=== PATIENT | female | born 1985 | race American Indian/Alaskan Native ===

== ENCOUNTER 2018-10-11 08:06 | Emergency (ER) | payer OTHER ==
--- NOTE | 2018-10-11 10:09 | Emergency Department Report ---
ED Psych HPI - General Chief Complaint: Medical Clearance Stated Complaint: MED CLEARANCE Time Seen by Provider: 10/11/18 09:51 Source: patient Mode of arrival: Stretcher - History of Present Illness Initial Comments: Case 3-year-old female who is very poorly cooperative states she was sent here by [facility] for medical clearance. She denies suicidality. She presents with a transfer form stating withdrawal from cocaine and is otherwise illegible. There is some notation of "suicidal" on the forearms and dependency on THC and alcohol. The patient will not quantify how much alcohol she drinks. She does not offer the information about her homelessness. She has had an initial clinical assessment at [facility]. I do not know if she is eligible to continue hospitalization there. However there is a former stating voluntary status application to [facility] dated this date. The patient just lays on her side with a hat over her head. She denies any chronic medical problems or HIV. She has no specific complaints other than "the lights are too bright" MD Complaint: suicidal ideation (uncertain inflicting information patient states no) Associated Psychiatric Symptoms: other (requesting detox) History of same: Yes Context: recent alcohol abuse, recent drug abuse, not taking psychiatric (not offering a psychiatric history now but not unlikely) Associated Symptoms: denies other symptoms Treatments Prior to Arrival: none - Related Data Previous Rx's Medication Instructions Recorded Last Taken Type Azithromycin [Zithromax Z-BRANDIE] 250 mg PO DAILY #6 tablet 06/08/15 Unknown Rx Benzonatate [Tessalon Perles] 100 mg PO Q8HR #30 capsule 06/08/15 Unknown Rx guaiFENesin/CODEINE [Robitussin AC] 5 ml PO Q6HR PRN #150 ml 06/09/15 Unknown Rx Cyclobenzaprine [Flexeril] 10 mg PO TID PRN #15 tablet 08/19/15 Unknown Rx Naproxen [Naprosyn TAB] 500 mg PO BID #20 tablet 08/19/15 Unknown Rx traMADol [Ultram 50 MG tab] 50 mg PO Q8H PRN #10 tablet 08/19/15 Unknown Rx Allergies Allergy/AdvReac Type Severity Reaction Status Date / Time hydrocodone Allergy Hives Verified 04/08/14 15:52 ED Review of Systems ROS: Stated complaint: MED CLEARANCE Other details as noted in HPI Constitutional: denies: chills, fever Eyes: other (photosensitivity). denies: eye pain, vision change ENT: denies: ear pain, throat pain Respiratory: denies: cough, shortness of breath, wheezing Cardiovascular: denies: chest pain, palpitations Endocrine: no symptoms reported Gastrointestinal: denies: abdominal pain, nausea, diarrhea Genitourinary: denies: urgency, dysuria, discharge Musculoskeletal: denies: back pain, joint swelling, arthralgia Skin: denies: rash, lesions Neurological: denies: headache, weakness, paresthesias Psychiatric: as per HPI. denies: anxiety, depression Hematological/Lymphatic: denies: easy bleeding, easy bruising ED Past Medical Hx - Past Medical History Previous Medical History?: Yes Hx Congestive Heart Failure: No Hx Diabetes: No Hx Pulmonary Embolism: Yes (2012, after ) Hx GERD: Yes Hx Headaches / Migraines: Yes Hx Asthma: No Hx COPD: No Hx HIV: No Additional medical history: PE in the past, was treated with warfarin therapy. Negative CT angiogram in March of this year. Ovarian cyst - Surgical History Hx Cholecystectomy: Yes (2010) Hx Appendectomy: Yes (2010) Additional Surgical History: tubal ligation 02/2013 - Social History Smoking Status: Current Every Day Smoker Substance Use Type: Alcohol, Cocaine, Heroin, Marijuana - Medications Home Medications: Home Medications Medication Instructions Recorded Confirmed Last Taken Type Azithromycin [Zithromax Z-BRANDIE] 250 mg PO DAILY #6 tablet 06/08/15 Unknown Rx Benzonatate [Tessalon Perles] 100 mg PO Q8HR #30 capsule 06/08/15 Unknown Rx guaiFENesin/CODEINE [Robitussin AC] 5 ml PO Q6HR PRN #150 ml 06/09/15 Unknown Rx Cyclobenzaprine [Flexeril] 10 mg PO TID PRN #15 tablet 08/19/15 Unknown Rx Naproxen [Naprosyn TAB] 500 mg PO BID #20 tablet 08/19/15 Unknown Rx traMADol [Ultram 50 MG tab] 50 mg PO Q8H PRN #10 tablet 08/19/15 Unknown Rx ED Physical Exam - General Limitations: Other (uncooperative) General appearance: alert, in no apparent distress, cachectic (somewhat) - Head Head exam: Present: atraumatic, normocephalic - Eye Eye exam: Present: normal appearance. Absent: scleral icterus - ENT ENT exam: Present: mucous membranes moist - Neck Neck exam: Present: normal inspection. Absent: tenderness, meningismus - Respiratory Respiratory exam: Present: normal lung sounds bilaterally. Absent: respiratory distress - Cardiovascular Cardiovascular Exam: Present: regular rate, normal rhythm. Absent: systolic murmur, diastolic murmur, rubs, gallop - GI/Abdominal GI/Abdominal exam: Present: soft, normal bowel sounds. Absent: distended, tenderness, guarding, rebound - Extremities Exam Extremities exam: Present: normal inspection - Back Exam Back exam: Present: normal inspection - Neurological Exam Neurological exam: Present: alert, oriented X3, CN II-XII intact. Absent: motor sensory deficit - Psychiatric Psychiatric exam: Present: normal affect, normal mood - Skin Skin exam: Present: warm, dry, intact, normal color. Absent: rash ED Course Vital Signs 10/11/18 09:04 Temperature 98.2 F Pulse Rate 71 Respiratory 15 Rate Blood Pressure 104/71 Blood Pressure 104/71 [Left] O2 Sat by Pulse 99 Oximetry - Reevaluation(s) Reevaluation #1: Discussed with mental health counselor. She states that the patient may be discharged. She may return to [facility] for voluntary admission. She is medically clear at this time. 10/11/18 15:03 ED Medical Decision Making - Lab Data Result diagrams: 10/11/18 10:10 10/11/18 10:09 Laboratory Results - last 24 hr 10/11/18 10/11/18 10/11/18 10:09 10:09 10:09 WBC RBC Hgb Hct MCV MCH MCHC RDW Plt Count Lymph % (Auto) Gem % (Auto) Eos % (Auto) Baso % (Auto) Lymph # Gem # Eos # Baso # Seg Neutrophils % Seg Neutrophils # Sodium 141 Potassium 3.3 L Chloride 104.7 Carbon Dioxide 24 Anion Gap 16 BUN 11 Creatinine 0.8 Estimated GFR > 60 BUN/Creatinine Ratio 14 Glucose 107 H Calcium 9.0 Total Bilirubin < 0.20 Direct Bilirubin < 0.2 Indirect Bilirubin 0.0 AST 19 ALT 13 Alkaline Phosphatase 57 Total Creatine Kinase 165 H CK-MB (CK-2) 2.6 CK-MB (CK-2) Rel Index 1.5 Total Protein 6.3 Albumin 3.6 L Albumin/Globulin Ratio 1.3 Plasma/Serum Alcohol < 0.01 10/11/18 10:10 WBC 5.1 RBC 4.28 Hgb 12.1 Hct 37.1 MCV 87 MCH 28 MCHC 33 RDW 16.4 H Plt Count 373 Lymph % (Auto) 24.9 Gem % (Auto) 8.0 H Eos % (Auto) 1.7 Baso % (Auto) 0.7 Lymph # 1.3 Gem # 0.4 Eos # 0.1 Baso # 0.0 Seg Neutrophils % 64.7 Seg Neutrophils # 3.3 Sodium Potassium Chloride Carbon Dioxide Anion Gap BUN Creatinine Estimated GFR BUN/Creatinine Ratio Glucose Calcium Total Bilirubin Direct Bilirubin Indirect Bilirubin AST ALT Alkaline Phosphatase Total Creatine Kinase CK-MB (CK-2) CK-MB (CK-2) Rel Index Total Protein Albumin Albumin/Globulin Ratio Plasma/Serum Alcohol Critical care attestation.: If time is entered above; I have spent that time in minutes in the direct care of this critically ill patient, excluding procedure time. ED Disposition Clinical Impression: Medical clearance for psychiatric admission, Polysubstance abuse Disposition: DC-01 TO HOME OR SELFCARE Is pt being admited?: No Does the pt Need Aspirin: No Condition: Stable Instructions: Cocaine Abuse (ED) Additional Instructions: You may return to [facility] at this time. You are medically clear for psychiatric hospitalization. Referrals: ISAÍAS CHAPA MD [Primary Care Provider] - 3-5 Days Time of Disposition: 15:05
[2018-10-11 10:33] LABS: Basophils % (Auto) 0.7 % (0.0-1.8); Eosinophils # (Auto) 0.1 K/mm3 (0.0-0.4); Eosinophils % (Auto) 1.7 % (0.0-4.3); Hematocrit 37.1 % (30.3-42.9); Hemoglobin 12.1 gm/dl (10.1-14.3); Lymphocytes # (Auto) 1.3 K/mm3 (1.2-5.4); Lymphocytes % (Auto) 24.9 % (13.4-35.0); Mean Corpuscular HGB Conc 33 % (30-34); Mean Corpuscular Volume 87 fl (79-97); Monocytes # (Auto) 0.4 K/mm3 (0.0-0.8); Platelet Count 373 K/mm3 (140-440); Red Blood Count 4.28 M/mm3 (3.65-5.03); Red Cell Distribution Width 16.4 % (13.2-15.2)
[2018-10-11 10:49] LABS: BUN/Creatinine Ratio 14; Blood Urea Nitrogen 11 mg/dL (7-17); Hemolysis Index 11
[2018-10-11 10:50] LABS: Creatine Kinase MB 2.6 ng/mL (0.0-4.0)
[2018-10-11 10:53] LABS: Alanine Aminotransferase 13 units/L (7-56); Albumin 3.6 g/dL (3.9-5)
[2018-10-11 10:55] LABS: Bilirubin,Direct < 0.2 mg/dL (0-0.2)
[2018-10-11] MEDS ORDERED: K-DUR PO ONE (12:43)
[2018-10-11 16:08] LABS: Amphetamine Screen,Urine PRESUMPTIVE NEGATIVE; Benzodiazepines Screen,Urine PRESUMPTIVE NEGATIVE; Methadone Screen,Urine PRESUMPTIVE NEGATIVE; Opiate Screen,Urine PRESUMPTIVE NEGATIVE
[2018-10-11 16:20] LABS: Cannabinoid Screen,Urine PRESUMPTIVE POSITIVE; Cocaine Screen,Urine PRESUMPTIVE POSITIVE
[2018-10-11 20:56] VITALS: BP 127/84
== END 2018-10-11 20:56 | disposition home or self-care (01) ==
LOC: ED 08:06
DX: R45.851 Suicidal ideations (principal); F15.10 Other stimulant abuse, uncomplicated; Z88.6 Allergy status to analgesic agent
CPT/HCPCS: 36415; 80048; 80076; 80307; 80320; 82550; 82553; 85025; G0480

== ENCOUNTER 2018-12-20 18:19 | Emergency (ER) | payer MEDICAID, OTHER ==
[2018-12-20 20:17] LABS: Basophils % (Auto) 0.4 % (0.0-1.8); Eosinophils # (Auto) 0.2 K/mm3 (0.0-0.4); Eosinophils % (Auto) 2.2 % (0.0-4.3); Hemoglobin 12.4 gm/dl (10.1-14.3); Lymphocytes # (Auto) 3.4 K/mm3 (1.2-5.4); Lymphocytes % (Auto) 43.3 % (13.4-35.0); Mean Corpuscular HGB Conc 33 % (30-34); Mean Corpuscular Volume 83 fl (79-97); Monocytes # (Auto) 0.5 K/mm3 (0.0-0.8); Monocytes % (Auto) 6.7 % (0.0-7.3); Platelet Count 402 K/mm3 (140-440); Red Cell Distribution Width 18.2 % (13.2-15.2)
[2018-12-20 20:35] LABS: BUN/Creatinine Ratio 17; Blood Urea Nitrogen 12 mg/dL (7-17); Calcium 8.8 mg/dL (8.4-10.2); Hemolysis Index 5
--- NOTE | 2018-12-20 23:42 | Emergency Department Report ---
ED Medical Clearance HPI - General Chief complaint: Psych Stated complaint: MED CLEARANCE Time Seen by Provider: 12/20/18 19:30 Source: EMS Mode of arrival: Stretcher - History of Present Illness Initial comments: He is a 33-year-old Female who is currently in a psychiatric facility for suicidal ideations who's been sent here for mental clearance. The transfer sheet states that the patient was having sweating nausea vomiting and some withdrawal symptoms. Patient denies this. Patient states that she believes she was sent in because she had some pills in her pocket from several days ago that she took out of her pocket in front of one of the staff members and they're fear ed that she may have overdosed. Patient admits to taking 2 Percocet at approximately 2 PM but this medication was prescribed. Patient states she is not overdosed and her only symptom at this time is agitation because she feels as though she may be having an anxiety attack. Home medications: Previous Rx's Medication Instructions Recorded Last Taken Type Azithromycin [Zithromax Z-BRANDIE] 250 mg PO DAILY #6 tablet 06/08/15 Unknown Rx Benzonatate [Tessalon Perles] 100 mg PO Q8HR #30 capsule 06/08/15 Unknown Rx guaiFENesin/CODEINE [Robitussin AC] 5 ml PO Q6HR PRN #150 ml 06/09/15 Unknown Rx Cyclobenzaprine [Flexeril] 10 mg PO TID PRN #15 tablet 08/19/15 Unknown Rx Naproxen [Naprosyn TAB] 500 mg PO BID #20 tablet 08/19/15 Unknown Rx traMADol [Ultram 50 MG tab] 50 mg PO Q8H PRN #10 tablet 08/19/15 Unknown Rx Allergies/Adverse reactions: Allergies Allergy/AdvReac Type Severity Reaction Status Date / Time hydrocodone Allergy Hives Verified 04/08/14 15:52 ED Review of Systems ROS: Stated complaint: MED CLEARANCE Other details as noted in HPI Comment: All other systems reviewed and negative ED Past Medical Hx - Past Medical History Previous Medical History?: Yes Hx Congestive Heart Failure: No Hx Diabetes: No Hx Pulmonary Embolism: Yes (2012, after ) Hx GERD: Yes Hx Headaches / Migraines: Yes Hx Psychiatric Treatment: Yes (bipolar, depression) Hx Asthma: No Hx COPD: No Hx HIV: No Additional medical history: PE in the past, was treated with warfarin therapy. Negative CT angiogram in March of this year. Ovarian cyst - Surgical History Hx Cholecystectomy: Yes (2010) Hx Appendectomy: Yes (2010) Additional Surgical History: tubal ligation 02/2013 - Social History Smoking Status: Current Every Day Smoker Substance Use Type: None - Medications Home Medications: Home Medications Medication Instructions Recorded Confirmed Last Taken Type Azithromycin [Zithromax Z-BRANDIE] 250 mg PO DAILY #6 tablet 06/08/15 Unknown Rx Benzonatate [Tessalon Perles] 100 mg PO Q8HR #30 capsule 06/08/15 Unknown Rx guaiFENesin/CODEINE [Robitussin AC] 5 ml PO Q6HR PRN #150 ml 06/09/15 Unknown Rx Cyclobenzaprine [Flexeril] 10 mg PO TID PRN #15 tablet 08/19/15 Unknown Rx Naproxen [Naprosyn TAB] 500 mg PO BID #20 tablet 08/19/15 Unknown Rx traMADol [Ultram 50 MG tab] 50 mg PO Q8H PRN #10 tablet 08/19/15 Unknown Rx ED Physical Exam - General Limitations: No Limitations General appearance: alert, anxious - Head Head exam: Present: atraumatic, normocephalic - Eye Eye exam: Present: normal appearance, PERRL, EOMI - ENT ENT exam: Present: mucous membranes moist - Neck Neck exam: Present: normal inspection - Respiratory Respiratory exam: Present: normal lung sounds bilaterally. Absent: respiratory distress, wheezes, rales, rhonchi - Cardiovascular Cardiovascular Exam: Present: regular rate, normal rhythm, normal heart sounds. Absent: systolic murmur, diastolic murmur, rubs, gallop - GI/Abdominal GI/Abdominal exam: Present: soft, normal bowel sounds. Absent: distended, tenderness, guarding, rebound - Extremities Exam Extremities exam: Present: normal inspection - Back Exam Back exam: Present: normal inspection - Neurological Exam Neurological exam: Present: alert, oriented X3 - Psychiatric Psychiatric exam: Present: normal affect, normal mood - Skin Skin exam: Present: warm, dry, intact, normal color. Absent: rash ED Course Vital Signs 12/20/18 12/20/18 18:50 19:37 Temperature 97.9 F Pulse Rate 86 84 Respiratory 20 18 Rate Blood Pressure 89/56 Blood Pressure 89/56 106/58 [Left] O2 Sat by Pulse 97 97 Oximetry ED Medical Decision Making - Lab Data Result diagrams: 12/20/18 19:34 12/20/18 19:34 Lab Results 12/20/18 12/20/18 12/20/18 Range/Units 19:34 19:34 19:34 WBC (4.5-11.0) K/mm3 RBC (3.65-5.03) M/mm3 Hgb (10.1-14.3) gm/dl Hct (30.3-42.9) % MCV (79-97) fl MCH (28-32) pg MCHC (30-34) % RDW (13.2-15.2) % Plt Count (140-440) K/mm3 Lymph % (Auto) (13.4-35.0) % [place] % (Auto) (0.0-7.3) % Eos % (Auto) (0.0-4.3) % Baso % (Auto) (0.0-1.8) % Lymph # (1.2-5.4) K/mm3 [place] # (0.0-0.8) K/mm3 Eos # (0.0-0.4) K/mm3 Baso # (0.0-0.1) K/mm3 Seg Neutrophils % (40.0-70.0) % Seg Neutrophils # (1.8-7.7) K/mm3 Sodium 137 (137-145) mmol/L Potassium 3.5 L (3.6-5.0) mmol/L Chloride 99.9 (98-107) mmol/L Carbon Dioxide 26 (22-30) mmol/L Anion Gap 15 mmol/L BUN 12 (7-17) mg/dL Creatinine 0.7 (0.7-1.2) mg/dL Estimated GFR > 60 ml/min BUN/Creatinine Ratio 17 % Glucose 94 (65-100) mg/dL Calcium 8.8 (8.4-10.2) mg/dL Salicylates < 0.3 L (2.8-20.0) mg/dL Acetaminophen < 5.0 L (10.0-30.0) ug/mL Plasma/Serum Alcohol (0-0.07) % 12/20/18 12/20/18 Range/Units 19:34 19:34 WBC 8.0 (4.5-11.0) K/mm3 RBC 4.60 (3.65-5.03) M/mm3 Hgb 12.4 (10.1-14.3) gm/dl Hct 38.0 (30.3-42.9) % MCV 83 (79-97) fl MCH 27 L (28-32) pg MCHC 33 (30-34) % RDW 18.2 H (13.2-15.2) % Plt Count 402 (140-440) K/mm3 Lymph % (Auto) 43.3 H (13.4-35.0) % [place] % (Auto) 6.7 (0.0-7.3) % Eos % (Auto) 2.2 (0.0-4.3) % Baso % (Auto) 0.4 (0.0-1.8) % Lymph # 3.4 (1.2-5.4) K/mm3 [place] # 0.5 (0.0-0.8) K/mm3 Eos # 0.2 (0.0-0.4) K/mm3 Baso # 0.0 (0.0-0.1) K/mm3 Seg Neutrophils % 47.4 (40.0-70.0) % Seg Neutrophils # 3.8 (1.8-7.7) K/mm3 Sodium (137-145) mmol/L Potassium (3.6-5.0) mmol/L Chloride (98-107) mmol/L Carbon Dioxide (22-30) mmol/L Anion Gap mmol/L BUN (7-17) mg/dL Creatinine (0.7-1.2) mg/dL Estimated GFR ml/min BUN/Creatinine Ratio % Glucose (65-100) mg/dL Calcium (8.4-10.2) mg/dL Salicylates (2.8-20.0) mg/dL Acetaminophen (10.0-30.0) ug/mL Plasma/Serum Alcohol < 0.01 (0-0.07) % - Medical Decision Making Patient is 5 hours status post the time of the probable ingestion. Patient's acetaminophen and salicylate levels are both undetectable. Patient will be discharged back to normal limits. ED Disposition Clinical Impression: Anxiety Disposition: DC-01 TO HOME OR SELFCARE Is pt being admited?: No Does the pt Need Aspirin: No Condition: Stable Additional Instructions: The patient is medically cleared at this time. The acetaminophen and salicylate levels are both undetectable. Patient has no signs of a lethal ingestion at this time Referrals: PRIMARY CARE, [Primary Care Provider] - 3-5 Days Time of Disposition: 23:42
[2018-12-21 02:55] LABS: Bilirubin,Urine NEG (Negative); Blood,Urine NEG (Negative); Color,Urine Yellow (Yellow); Protein,Urine <15 mg/dL mg/dL (Negative); Urobilinogen,Urine < 2.0 mg/dL (<2.0); WBC,Urine < 1.0 /HPF (0.0-6.0)
[2018-12-21 02:58] LABS: Amphetamine Screen,Urine PRESUMPTIVE NEGATIVE; Benzodiazepines Screen,Urine PRESUMPTIVE NEGATIVE; Cannabinoid Screen,Urine PRESUMPTIVE NEGATIVE; Methadone Screen,Urine PRESUMPTIVE NEGATIVE; Opiate Screen,Urine PRESUMPTIVE NEGATIVE
[2018-12-21 03:12] LABS: Cocaine Screen,Urine PRESUMPTIVE POSITIVE
[2018-12-21 08:00] VITALS: BP 121/68
== END 2018-12-21 09:09 | disposition home or self-care (01) ==
LOC: ED 18:19
DX: F41.9 Anxiety disorder, unspecified (principal); F31.9 Bipolar disorder, unspecified; K21.9 Gastro-esophageal reflux disease without esophagitis; I26.99 Other pulmonary embolism without acute cor pulmonale; F17.200 Nicotine dependence, unspecified, uncomplicated; Z90.49 Acquired absence of other specified parts of digestive tract; Z79.899 Other long term (current) drug therapy; Z98.51 Tubal ligation status; Z88.6 Allergy status to analgesic agent
CPT/HCPCS: 36415; 80048; 80307; 80320; 81001; 85025; G0480